=== PATIENT | male | born 1970 | race Caucasian/White ===

== ENCOUNTER 2020-03-04 13:18 | Emergency (ER) | payer OTHER ==
[~2020-03-04] VITALS: Ht 188 cm; Wt 77.0 kg
[2020-03-04 13:23] VITALS: BP 132/96
[2020-03-04] MEDS ORDERED: FAMOTIDINE 20MG TABLET PO ONE (14:30)
[2020-03-04 16:07] LABS: BASOPHILS % 0.9 % (0.0-2.0); EOSINOPHILS % 1.5 % (0.0-5.0); HEMATOCRIT. 48.3 % (42.0-52.0); HEMOGLOBIN. 16.5 g/dL (14.0-18.0); LYMPHOCYTES % 25.1 % (20.0-50.0); MEAN CORPUSCULAR HEMOGLOBIN 30.6 pg (28.0-32.0); MEAN CORPUSCULAR VOLUME 89.7 fL (80.0-94.0); MEAN PLATELET VOLUME 9.5 fl (7.4-10.4); MONOCYTES % 8.5 % (2.0-8.0); PLATELET 118 x1000/uL (130-400); RED BLOOD CELL COUNT 5.39 mill/uL (4.7-6.1)
[2020-03-04 16:12] LABS: CHLORIDE 107 mEq/L (98-107)
[2020-03-04] MEDS ORDERED: SODIUM CHLORIDE 0.9% 1,000 ML IV ONE (16:15)
== END 2020-03-04 18:37 | disposition home or self-care (01) ==
LOC: ER 13:18
DX: K40.90 Unilateral inguinal hernia, without obstruction or gangrene, not specified as recurrent (principal); I10 Essential (primary) hypertension
CPT/HCPCS: 36415; 74177; 80053; 85025; 99285; J7030

== ENCOUNTER 2023-10-05 10:21 | Emergency (ER) | payer OTHER ==
[2023-10-05 10:22] VITALS: BP 115/69
[2023-10-05] MEDS ORDERED: ACETAMINOPHEN 325MG TABLET PO STA (11:13)
[2023-10-05] MEDS ORDERED: ONDANSETRON 4MG ODT PO STA (11:13)
[2023-10-05 11:34] LABS: HEMOGLOBIN. 13.6 g/dL (14.0-18.0); MEAN CORPUSCULAR HEMOGLOBIN 30.2 pg (28.0-32.0); MEAN CORPUSCULAR HGB CONC 33.2 g/dL (31.0-37.0); MEAN CORPUSCULAR VOLUME 91.1 fL (80.0-94.0); MEAN PLATELET VOLUME 9.7 fl (7.4-10.4); PLATELET 129 x1000/uL (130-400); RED CELL DISTRIBUTION WIDTH 13.7 % (11.6-14.6); WHITE BLOOD COUNT 6.8 x1000/uL (4.5-11.0)
[2023-10-05 11:39] LABS: CLARITY URINE TURBID (CLEAR); COLOR URINE DARK YELLOW (YELLOW); GLUCOSE URINE NEGATIVE (NEGATIVE); KETONES URINE NEGATIVE (NEGATIVE); LEUKOCYTE ESTERASE URINE 3+ (NEGATIVE); NITRITE URINE POSITIVE (NEGATIVE); OCCULT BLOOD URINE 1+ (NEGATIVE); PH URINE 5.5 (4.5-8.0); PROTEIN URINE 1+ (NEGATIVE); SPECIFIC GRAVITY URINE 1.015 (1.005-1.030)
[2023-10-05 11:40] LABS: DIFFERENTIAL COMMENT 1
[2023-10-05 11:53] LABS: ALANINE AMINOTRANSFERASE 40 IU/L (10-49); ALBUMIN 3.3 g/dL (3.2-4.8); ASPARTATE AMINOTRANSFERASE 37 IU/L (<34); BILIRUBIN TOTAL 1.2 mg/dL (0.1-1.0); CALCIUM 8.6 mg/dL (8.7-10.4); CARBON DIOXIDE 32 mEq/L (21-32); CHLORIDE 103 mEq/L (98-107); CREATININE 0.6 mg/dL (0.6-1.3); GLUCOSE 115 mg/dL (70-105); POTASSIUM 3.8 mEq/L (3.5-5.1); SODIUM 139 mEq/L (136-145); UREA NITROGEN BLOOD 10 mg/dL (9-23)
[2023-10-05 11:58] LABS: PLATELET ESTIMATE SLIGHTLY DECREASED
[2023-10-05 12:01] LABS: SQUAMOUS EPITHELIAL CELL URINE NONE SEEN /lpf (RARE/1+); WBC URINE TNTC /hpf (0-2); YEAST URINE NONE SEEN
[2023-10-05 12:03] LABS: BACTERIA URINE 3+
[2023-10-05] MEDS ORDERED: CEPH500T MT (13:18)
[2023-10-05] MEDS ORDERED: CEFTRIAXONE SODIUM 1 G/VIAL IM ONE (13:30)
[2023-10-05 14:26] VITALS: PULSE 70; RESP 15; TEMP 97.7
== END 2023-10-05 14:28 ==
LOC: ER 10:21
DX: N39.0 Urinary tract infection, site not specified (principal); I10 Essential (primary) hypertension
CPT/HCPCS: 99285; 74176; 80053; 81003; 83690; 85025; 87086; 87186; 87077; 36415; 96372; Q0162; J0696